=== PATIENT | male | born 1985 | race Caucasian/White ===

== ENCOUNTER 2018-09-16 04:00 | Emergency (ER) | payer OTHER, SELFPAY ==
[2018-09-16 04:01] VITALS: BP 143/85; PULSE 73; RESP 16; TEMP 36.7; O2SAT 98; BMI 21.7
--- NOTE | 2018-09-16 04:17 | ED.VISSUMM ---
- ER Visit Summary Date of Service: 09/16/18 Chief Complaint: Left ear pain History of Present Illness: The patient is a 33 M who presents with left ear pain that began this morning. Patient states she woke up early this morning and felt a popping sensation in his left ear. Patient states he then developed stabbing pain in his left ear. Patient states pain is worsened by burping. Patient also admits to an echo in his left ear. Patient states he has had recent upper respiratory congestion with subjective fevers and chills and the sore throat. Patient also admits to a mild cough but denies any sputum. Physical Examination: Vital signs are stable. Patient is afebrile. Patient is in no acute distress. The left tympanic membrane is erythematous the right tympanic membrane is clear. Oral mucosa is pink and moist. Oropharynx is clear. Neck is supple. Trachea is midline. There is no JVD noted. There is no lymphadenopathy noted. Heart was regular rate and rhythm. Lungs are clear and equal bilaterally. Abdomen is soft. Bowel sounds are normal. There is no tenderness. Cranial nerves II through XII are intact. There are no focal motor or sensory deficits noted. Emergency Department Course and Treatment: Patient was given a prescription for Augmentin. Patient was given his first dose here. Patient was instructed to continue his Flonase as needed. Patient was instructed to follow-up with his primary care physician in 5 to 7 days. Patient understood and was agreeable with the plan. All questions were answered. Disposition: Discharge home Impression: Left acute otitis media This note was generated with [employer] dictation software. It may contain incorrect words, spelling, and punctuation that were not noted in review of the chart prior to signing ED Disposition - Plan for ED Patient: Disposition: Home or Assisted Living Diagnosis: Left acute otitis media Instructions: ED Otitis Media Acute Adult Prescriptions: Amox/Clavulanate Tablet [Augmentin Tablet] 875 mg PO Q12H #20 tab Referrals: Toño Allen MD [Primary Care Provider] - 5-7 Days
[2018-09-16 04:20] VITALS: BP 143/85; PULSE 73; RESP 15; O2SAT 98
[2018-09-16] MEDS: Amox/Clavulanate 875 MG Tablet PO (04:26)
== END 2018-09-16 04:28 | disposition home or self-care (01) ==
PROVIDERS: Emergency Provider Emergency Medicine; Family Provider Internal Medicine; PCP Internal Medicine
DX: H66.92 Otitis media, unspecified, left ear (principal); R05 Cough; J02.9 Acute pharyngitis, unspecified; R20.2 Paresthesia of skin; J45.909 Unspecified asthma, uncomplicated; E73.9 Lactose intolerance, unspecified
CPT/HCPCS: 99283

== ENCOUNTER 2019-06-23 11:40 | Emergency (ER) | payer OTHER, SELFPAY ==
[2019-06-23 11:41] VITALS: BP 122/72; PULSE 61; RESP 18; TEMP 35.8; O2SAT 100; BMI 21.8
--- NOTE | 2019-06-23 13:04 | ED.VIS.GEN ---
History of Present Illness Chief Complaint: Dizziness Informant: Patient Narrative: Patient states that he woke this morning when he opened his eyes room was spinning. It was not as bad but by time he got back to his room after the bathroom he had to keep his eyes shut and laid down. Worse with change in position. He notes the room was spinning to the right. 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 No recent upper respiratory infections. He went to urgent care and was dry heaving so there was referred here. States now over the past 2024 minutes he has been feeling significantly better. Father has a history of M?ni?re's. He is seeing Dr. Schultz for ENT. Past Medical History - Allergies and Home Meds Allergies/Adverse Reactions: Allergies lactose Adverse Reaction (Verified 06/23/19 11:41) Diarrhea Primary Care Physician: Toño Allen MD [Primary Care Provider] - Smoking Status: Never smoker Review of Systems General: Denies: Chills, Fever, Sweats Eyes: Denies: Visual changes - bilaterally, Diplopia ENT: Reports: - - Tinnitus left ear., -. Denies: Rhinorrhea, Sore throat Cardiovascular: Denies: Chest pain, Palpitations Respiratory: Denies: Dyspnea, Cough, Dyspnea on exertion Gastrointestinal: Denies: Abdominal pain, Nausea, Vomiting, Diarrhea, Melena, Hematochezia Genitourinary: Denies: Dysuria, Hematuria, Frequency Musculoskeletal: Denies: Back pain, Extremity Pain Skin: Denies: Rash, Wounds Neurological: Denies: Headache, Weakness, Numbness Physical Exam Vital Signs/Narrative: Vital Signs Temp Pulse Resp BP Pulse Ox 06/23/19 11:41 96.4 F L 61 18 122/72 H 100 Inital Vital Signs reviewed: Yes General: Well nourished, Well developed, No Acute Distress Head: Normocephalic, Atraumatic Eyes: Perrl, EOMI ENT: Moist mucous membranes, No rhinorrhea Neck: Supple, Nontender Cardiovascular: Regular rate, Regular rhythm, No murmurs Respiratory: No distress, CTA bilaterally, Chest nontender Abdomen: Soft, Nontender, Nondistended, Normal bowel sounds Back: Nontender, Normal Inspection Extremities: Nontender, No edema Skin: Normal color, No rash Neurological: Alert, Oriented x3, Cranial nerves II-XII grossly intact, Normal Strength, Normal Sensation Psychological: Normal affect, Normal Mood Diagnostic/Tx/Re-eval - Medical Decision Making By his description this appears to be positional vertigo. I will write for some Valium and Zofran. I will give him a handout on self treatment of benign positional vertigo. Follow-up with ENT. ED Disposition - Plan for ED Patient: Disposition: Home or Assisted Living Diagnosis: Vertigo Instructions: Benign Positional Vertigo Prescriptions: Diazepam [Valium] 5 mg PO Q8 PRN #15 tab PRN Reason: vertigo Prescription Printed Ondansetron [Zofran Odt] 4 mg PO Q8H PRN PRN #10 tab PRN Reason: Nausea Prescription Printed Referrals: Everardo Schultz MD [STAFF PHYSICIAN] - As Needed
[2019-06-23 13:27] VITALS: BP 127/86; PULSE 71; RESP 18; O2SAT 98
== END 2019-06-23 13:29 | disposition home or self-care (01) ==
LOC: ED 13:17
PROVIDERS: Emergency Provider Emergency Medicine; PCP Internal Medicine
DX: R42 Dizziness and giddiness (principal)
CPT/HCPCS: 99282